=== PATIENT | female | born 1945 | race Caucasian/White ===

== ENCOUNTER → 2016-09-28 | Outpatient (CLI) | payer MEDICARE, BC ==
[2016-09-28 15:24] LABS: CHLORIDE,CL 94 mmol/L (98-110); SODIUM,NA 132 mmol/L (136-146)
== END | disposition home or self-care (01) ==
LOC: MW.CHFP 14:47
PROVIDERS: ATTEND Emergency Medicine
DX: N18.3 Chronic kidney disease, stage 3 (moderate) (principal); I10 Essential (primary) hypertension; R79.89 Other specified abnormal findings of blood chemistry; R27.0 Ataxia, unspecified
CPT/HCPCS: 36415; 80053; 83735; 84100; 85027; G0463

== ENCOUNTER 2020-12-10 07:21 | Day surgery (SDC) | payer MEDICARE, BC ==
[~2020-12-10 07:21] MED LIST: Glycopyrrolate 0.2 MG/ML SDV ONE; Lactated Ringers 1,000 ML IV SCH; Lidocaine 2% 5 ML SDV ONE; Midazolam 1 MG/ML 2 ML SDV ONE; Propofol 200 MG/20 ML SDV ONE; Sodium Chloride 0.9% 10 ML SDV IV PRN; Sodium Chloride 0.9% 10 ML Syringe FLUSH PRN; Sodium Chloride 0.9% 2.5 ML Syringe FLUSH PRN
--- NOTE | 2020-12-10 08:21 | PCM.PREANE ---
Preanesthetic Assessment - Anesthesia/Transfusion/Family Hx Anesthesia History: No Prior Anesthesia Other Type of Anesthesia Reaction Comment: "with my nasal procedure & Colonoscopy I was aware & heard them talking" Family History of Anesthesia Reaction: No Transfusion History: No Prior Transfusion(s) - Physical Assessment NPO Status Date: 12/10/20 NPO Status Time: 00:05 Height: 1.63 m Weight: 64.41 kg ASA Class: 3 Mental Status: Alert & Oriented x3 Dentition: Reports: Dentures - Allergies Allergies/Adverse Reactions: Allergies Allergy/AdvReac Type Severity Reaction Status Date / Time buspirone Allergy Stomach Verified 11/27/20 08:48 Upset - Acknowledgements Pt an Appropriate Candidate for the Planned Anesthesia: Yes Alternatives and Risks of Anesthesia Discussed w Pt/Guardian: Yes Pt/Guardian Understands and Agrees with Anesthesia Plan: Yes PreAnesthesia Questionnaire - Past Health History Medical/Surgical History: Denies Medical/Surgical History HEENT History: Reports: Other (See Below) Other HEENT History: wears glasses, top denture, bottom partial Cardiovascular History: Reports: Heart Murmur, High Cholesterol, Pacemaker Other Cardiovascular History: carotid stenosis, Respiratory History: Reports: SOB, Other (See Below) Other Respiratory History: nocturnal hypoxia, on oxygen at night at 2 L/NC Gastrointestinal History: Reports: Colon Polyp, GERD, Other (See Below) Other Gastrointestinal History: hx bleeding ulcer Genitourinary History: Reports: Chronic Renal Insuffiency Other Genitourinary History: CKD stage 3 [employer] History: Reports: Musculoskeletal History: Reports: Osteoarthritis Neurological History: Reports: None Psychiatric History: Reports: Anxiety Endocrine/Metabolic History: Reports: Other (See Below) Other Endocrine/Metabolic History: hx "overactive thyroid during ", none since Hematologic History: Reports: None Immunologic History: Reports: None Oncologic (Cancer) History: Reports: None Dermatologic History: Reports: None - Past Surgical History Head Surgeries/Procedures: Reports: None HEENT Surgical History: Reports: Naso-Sinus Surgery Cardiovascular Surgical History: Reports: Pacer, Valve Replacement Other Cardiovascular Surgeries/Procedures: transcatheter aortic valve replacement with pacemaker placement Respiratory Surgical History: Reports: None GI Surgical History: Reports: Appendectomy, Colonoscopy Female Surgical History: Reports: D&C Endocrine Surgical History: Reports: None Neurological Surgical History: Reports: None Musculoskeletal Surgical History: Reports: None Oncologic Surgical History: Reports: None Dermatological Surgical History: Reports: None - SUBSTANCE USE Tobacco Use Status *Q: Former Tobacco User Tobacco Use Within Last Twelve Months: No Recreational Drug Use History: No - HOME MEDS Home Medications: Home Meds ALPRAZolam [Alprazolam ER] 0.5 mg PO ASDIRECTED PRN 10/12/13 [History] Diltiazem [Tiazac] 240 mg PO DAILY 10/12/13 [History] Potassium Chloride [Klor-Con 10] 10 meq PO DAILY 10/12/13 [History] Cranberry Fruit Extract/Vit C [Azo Cranberry Softgel] 1 tab PO DAILY 11/27/20 [History] Folic Acid 800 mcg PO DAILY 11/27/20 [History] Lactobacillus Acidophilus [Acidophilus] 1 tab PO DAILY 11/27/20 [History] Pravastatin [Pravachol] 40 mg PO DAILY 11/27/20 [History] Propylene Glycol/PEG 400/Pf [Systane 0.3-0.4% Eye Drop] 1 drop EYEBOTH ASDIRECTED PRN 11/27/20 [History] Sodium Bicarbonate 325 mg PO DAILY 11/27/20 [History] Sucralfate 1 gm PO ASDIRECTED PRN 11/27/20 [History] amLODIPine Besylate [Amlodipine Besylate] 10 mg PO DAILY 11/27/20 [History] - CURRENT (IN HOUSE) MEDS Current Meds: Current Medications Lactated Ringer's (Ringers, Lactated) 1,000 mls @ 125 mls/hr IV ASDIRECTED MILI Sodium Chloride (Sodium Chloride 0.9% 10 Ml Syringe) 10 ml FLUSH ASDIRECTED PRN PRN Reason: Keep Vein Open Sodium Chloride (Sodium Chloride 0.9% 2.5 Ml Syringe) 2.5 ml FLUSH ASDIRECTED PRN PRN Reason: Keep Vein Open Sodium Chloride (Sodium Chloride 0.9% 10 Ml Syringe) 10 ml FLUSH ASDIRECTED PRN PRN Reason: Keep Vein Open Sodium Chloride (Sodium Chloride 0.9% 2.5 Ml Syringe) 2.5 ml FLUSH ASDIRECTED PRN PRN Reason: Keep Vein Open Sodium Chloride (Sodium Chloride 0.9% 10 Ml Sdv) 10 ml IV ASDIRECTED PRN PRN Reason: IV Use Discontinued Medications Glycopyrrolate (Glycopyrrolate 0.2 Mg/Ml Sdv) Confirm Administered Dose 0.2 mg .ROUTE .STK-MED ONE Stop: 12/10/20 07:06 Lidocaine (Lidocaine 2% 5 Ml Sdv) Confirm Administered Dose 5 ml .ROUTE .STK-MED ONE Stop: 12/10/20 07:06 Midazolam HCl (Midazolam 1 Mg/Ml 2 Ml Sdv) Confirm Administered Dose 2 mg .ROUTE .STK-MED ONE Stop: 12/10/20 07:06 Propofol (Propofol 200 Mg/20 Ml Sdv) Confirm Administered Dose 600 mg .ROUTE .STK-MED ONE Stop: 12/10/20 07:06
[2020-12-10] MEDS ORDERED: cefOXitin 1 GM Vial ONE (08:26)
[2020-12-10] MEDS ORDERED: Sodium Chloride 0.9% 20 ML ONE (08:26)
--- NOTE | 2020-12-10 13:11 | PCM.OPNOTE ---
- General Post-Op/Procedure Note Date of Surgery/Procedure: 12/10/20 Operative Procedure(s): Diagnostic EGD and colonoscopy Findings: gastritis, esophagitis, hiatal hernia, rectal mass @ 20cm diverticulosis Pre Op Diagnosis: Reflux, bright red bleeding per rectum Post-Op Diagnosis: Gastritis, duodenitis, hiatal hernia, rectal mass @ 20cm, diverticulosis Anesthesia Technique: MAC Primary Surgeon: Karly Mccollum Condition: Good Free Text/Narrative:: Intake & Output 12/09/20 12/10/20 12/10/20 22:59 06:59 14:59 Intake Total 550 Balance 550
--- NOTE | 2020-12-10 18:32 | OR ---
SURGEON: KARLY MCCOLLUM MD DATE OF PROCEDURE: 12/10/2020 PREOPERATIVE DIAGNOSES: Increasing heartburn, bright red bleeding per rectum. POSTOPERATIVE DIAGNOSES: 1. Hiatal hernia. 2. Gastritis. 3. Esophagitis. 4. Rectal mass at 20 cm. 5. Diverticulosis. PROCEDURES PERFORMED: Diagnostic esophagogastroduodenoscopy and colonoscopy. PRIMARY SURGEON: Karly Mccollum MD ANESTHESIA: MAC. INSTRUMENTS USED: Olympus endoscope and colonoscope. EXTENT OF THE EXAM: To the second portion of the duodenum, to 20 cm within the colon. PREPARATION: Good. LIMITATIONS: Partially obstructing mass at 20 cm in the rectum. INDICATIONS: The patient is a 75-year-old female who presented to my clinic with increasing heartburn symptoms despite conservative measures as well as approximately a one- year history of bright red bleeding per rectum. I explained the need for diagnostic EGD and colonoscopy. I explained the procedures, expected perioperative course, and the risks. She verbalized understanding and wishes to proceed. PROCEDURE IN DETAIL: The patient was brought in to the endoscopy suite and placed in a left lateral decubitus position. A time-out was completed verifying the patient's name, age, date of , allergies, and procedure to be performed. Monitored anesthesia care was induced and a bite block was placed in the patient's mouth. Continuous oxygen was provided via face mask throughout the procedure. After adequate sedation was achieved, a well-lubricated endoscope was placed in the patient's mouth and advanced under direct visualization to the second portion of the duodenum. This appeared normal and a photograph was taken. The scope was then straightened out and fully withdrawn while examining the color, texture, anatomy, and integrity of the mucosa of the upper GI tract. The duodenal mucosa all appeared normal. The scope was brought into the stomach and a photograph was taken of the pylorus and GE junction. The patient was noted to have a very small hiatal hernia. The mucosa of the distal half of the stomach appeared slightly inflamed, but there was no evidence of ulceration. Biopsies were taken the gastric antrum, body, and fundus and sent for histologic review and H pylori testing. The scope was then brought into the distal esophagus. A photograph was taken of the small hiatal hernia sac. The Z-line grossly appeared normal. However, there was evidence of some esophagitis just above this. A biopsy was taken just above the Z-line and sent to Pathology, labeled as esophagus. The remainder of the esophagus appeared normal. The scope was removed and this portion of the procedure terminated. A digital rectal exam was performed. This exam was within normal limits. A well-lubricated colonoscope was inserted in the rectum and I attempted to make my way throughout the colon under direct visualization. At approximately 20 cm, the patient was noted to have a large partially obstructing mass. The tissue of this mass was friable and villous appearing. I was able to get past it, however, that then caused the mass to start bleeding. The decision was made to not attempt to go any further and instead to take photographs and biopsies of the mass. Biopsies were taken. Afterwards, I watched the area to ensure that hemostasis was achieved. Once I was assured that the bleeding had stopped, I inspected the remainder of my mucosa. The patient was noted to have a small diverticula just adjacent to this. The remainder of the rectum appeared normal. The scope was then retroflexed within the rectum to allow visualization of the anal canal opening. This appeared normal and a photograph was taken. The scope was then straightened out and fully withdrawn. The patient was woken up and taken to PACU in stable condition. ENDOSCOPIC DIAGNOSES: 1. Hiatal hernia. 2. Gastritis. 3. Esophagitis. 4. Rectal mass at 20 cm. 5. Diverticulosis. RECOMMENDATIONS: I started the patient on a PPI to be taken daily. We will follow up on the results of the upper GI biopsies. I showed pictures to the patient and her family members regarding the rectal mass. We will get the biopsy results back from this, but likely the patient will need to be referred to Colorectal Surgery for further management. PAULO AYALA /[id number]
== END 2020-12-10 10:15 | disposition home or self-care (01) ==
LOC: MW.SDS 07:21
PROVIDERS: ATTEND Surgery
DX: D12.8 Benign neoplasm of rectum (principal); K29.50 Unspecified chronic gastritis without bleeding; K21.00 Gastro-esophageal reflux disease with esophagitis, without bleeding; K44.9 Diaphragmatic hernia without obstruction or gangrene; K57.31 Diverticulosis of large intestine without perforation or abscess with bleeding; I12.9 Hypertensive chronic kidney disease with stage 1 through stage 4 chronic kidney disease, or unspecified chronic kidney disease; N18.4 Chronic kidney disease, stage 4 (severe); E78.00 Pure hypercholesterolemia, unspecified; Z86.010 Personal history of colon polyps; Z79.82 Long term (current) use of aspirin; Z88.8 Allergy status to other drugs, medicaments and biological substances; Z79.899 Other long term (current) drug therapy; Z80.0 Family history of malignant neoplasm of digestive organs; Z87.891 Personal history of nicotine dependence
CPT/HCPCS: 43239; 45380; 88305; 88342; J0694; J2250; J2704; J3490; J7120; 00813; 99100

== ENCOUNTER 2022-01-06 08:20 | Day surgery (SDC) | payer MEDICARE, BC ==
[~2022-01-06 08:20] MED LIST changes: -Glycopyrrolate 0.2 MG/ML SDV ONE; -Midazolam 1 MG/ML 2 ML SDV ONE; -Sodium Chloride 0.9% 10 ML SDV IV PRN; +Sodium Chloride 0.9% 20 ML SDV IV PRN; +fentaNYL 100 MCG/2 ML SDV ONE
== END 2022-01-06 11:02 | disposition home or self-care (01) ==
LOC: MW.SDS 08:20
PROVIDERS: ATTEND Surgery
DX: Z12.11 Encounter for screening for malignant neoplasm of colon (principal); K57.30 Diverticulosis of large intestine without perforation or abscess without bleeding; K28.9 Gastrojejunal ulcer, unspecified as acute or chronic, without hemorrhage or perforation; F41.9 Anxiety disorder, unspecified; I12.9 Hypertensive chronic kidney disease with stage 1 through stage 4 chronic kidney disease, or unspecified chronic kidney disease; N18.4 Chronic kidney disease, stage 4 (severe); E53.8 Deficiency of other specified B group vitamins; K21.9 Gastro-esophageal reflux disease without esophagitis; E78.00 Pure hypercholesterolemia, unspecified; D50.9 Iron deficiency anemia, unspecified; G47.34 Idiopathic sleep related nonobstructive alveolar hypoventilation; M19.90 Unspecified osteoarthritis, unspecified site; Z88.8 Allergy status to other drugs, medicaments and biological substances; Z79.899 Other long term (current) drug therapy; Z90.49 Acquired absence of other specified parts of digestive tract; Z98.890 Other specified postprocedural states; Z87.891 Personal history of nicotine dependence; Z95.1 Presence of aortocoronary bypass graft; Z95.5 Presence of coronary angioplasty implant and graft; Z85.038 Personal history of other malignant neoplasm of large intestine
CPT/HCPCS: 45380; J2704; J3010; J7120; 00811; 88305; 99100

== ENCOUNTER 2022-12-17 07:23 | Day surgery (SDC) | payer MEDICARE, BC ==
[2022-12-17] MEDS ORDERED: Propofol 200 MG/20 ML SDV ONE (07:50)
[2022-12-17] MEDS ORDERED: Lidocaine 2% 5 ML SDV ONE (07:50)
[2022-12-17] MEDS ORDERED: Lactated Ringers 1,000 ML IV SCH (08:00)
== END 2022-12-17 09:40 | disposition home or self-care (01) ==
LOC: MW.SDS 07:23
PROVIDERS: ATTEND Surgery
DX: Z12.11 Encounter for screening for malignant neoplasm of colon (principal); K63.5 Polyp of colon; K57.30 Diverticulosis of large intestine without perforation or abscess without bleeding; I13.0 Hypertensive heart and chronic kidney disease with heart failure and stage 1 through stage 4 chronic kidney disease, or unspecified chronic kidney disease; N18.30 Chronic kidney disease, stage 3 unspecified; I50.20 Unspecified systolic (congestive) heart failure; F41.9 Anxiety disorder, unspecified; K21.9 Gastro-esophageal reflux disease without esophagitis; E78.00 Pure hypercholesterolemia, unspecified; M17.12 Unilateral primary osteoarthritis, left knee; E05.90 Thyrotoxicosis, unspecified without thyrotoxic crisis or storm; Z79.899 Other long term (current) drug therapy; Z98.0 Intestinal bypass and anastomosis status; Z98.51 Tubal ligation status; Z80.0 Family history of malignant neoplasm of digestive organs; Z87.891 Personal history of nicotine dependence; Z90.49 Acquired absence of other specified parts of digestive tract; Z88.8 Allergy status to other drugs, medicaments and biological substances
CPT/HCPCS: 45380; J2704; J7120; 00811; 88305; 99100; J3490